=== PATIENT | female | born 1990 | race Caucasian/White ===

== ENCOUNTER 2019-10-01 15:02 | Emergency (ER) | payer OTHER ==
[~2019-10-01] VITALS: Ht 167.6 cm; Wt 86.2 kg
[2019-10-01 15:24] VITALS: BP 126/79
--- NOTE | 2019-10-01 15:38 | NUR ---
PT AMBULATED TO BED 08, RN EVALUATING AT BEDSIDE.
--- NOTE | 2019-10-01 15:42 | NUR ---
29 Y/O F C/C CHEST PAIN/SOB X 30 MIN AGO. PER PT TIGHTNESS ON STERNUM AREA NOT RADIATING; PAIN 9/10; CHEST PAIN IS INTERMITTENT. LUNG SOUNDS CLEAR; 98% RA. PER PT HAS HAD SIMILAR EPISODES. PT NKA. HX DM. NO RX. NO N/V/D. SIDE RAIL X1. FAMILY AT BEDSIDE.
--- NOTE | 2019-10-01 15:44 | NUR ---
RT AT BEDSIDE
--- NOTE | 2019-10-01 15:44 | NUR ---
EMT AT BEDSIDE; EKG
--- NOTE | 2019-10-01 16:00 | NUR ---
LAB AT BEDSIDE
--- NOTE | 2019-10-01 16:04 | NUR ---
ERMD AT BEDSIDE
--- NOTE | 2019-10-01 16:05 | NUR ---
XRAY AT BEDSIDE
[2019-10-01 16:15] LABS: BASOPHILS # (AUTO) 0.1 K/uL (0.00-0.22); BASOPHILS % (AUTO) 0.7 % (0.0-2.0); EOSINOPHILS # (AUTO) 0.2 K/uL (0-0.4); EOSINOPHILS % (AUTO) 1.9 % (0.0-4.0); HEMATOCRIT 41.2 % (36-48); HEMOGLOBIN 13.9 g/dL (12.0-16.0); LYMPHOCYTES # (AUTO) 2.2 K/uL (2.5-16.5); LYMPHOCYTES % (AUTO) 27.3 % (20.5-51.1); MEAN CORPUSCULAR HEMOGLOBIN 31 pg (27-31); MEAN CORPUSCULAR HGB CONC 34 g/dL (33-37); MEAN CORPUSCULAR VOLUME 92.3 fL (80-94); MONOCYTES # (AUTO) 0.6 K/uL (0.8-1.0); MONOCYTES % (AUTO) 6.7 % (1.7-9.3); NEUTROPHILS # (AUTO) 5.2 K/uL (1.8-7.7); NEUTROPHILS % (AUTO) 63.4 % (42.2-75.2); PLATELET COUNT (AUTO) 236 K/uL (140-450); RED BLOOD CELL COUNT(AUTO) 4.46 MIL/uL (4.20-5.40); RED CELL DISTRIBUTION WIDTH 12.7 % (11.6-13.7); WHITE BLOOD COUNT (AUTO) 8.2 K/uL (4.8-10.8)
[2019-10-01 16:28] LABS: PROTHROMBIN TIME 9.8 secs (10.8-13.4)
[2019-10-01 16:37] LABS: APPEARANCE,URINE CLEAR (CLEAR); BILIRUBIN,URINE NEGATIVE (NEGATIVE); BLOOD, URINE NEGATIVE (NEGATIVE); COLOR,URINE YELLOW (YELLOW); LEUKOCYTE ESTERASE ,URINE NEGATIVE (NEGATIVE); NITRITE, URINE NEGATIVE (NEGATIVE); UGLUCOSE NEGATIVE (NEGATIVE)
[2019-10-01 16:42] LABS: BARBITURATE, URINE NEG. ng/ml (NEG <=200); BENZODIAZEPINE, URINE NEG. ng/mL (NEG <=200); CANNABINOID, URINE NEG. ng/mL (NEG <=50); COCAINE, URINE NEG. ng/mL (NEG <=300); OPIATE, URINE NEG. ng/mL (NEG <=2000); PHENCYCLIDINE SCREEN,URINE NEG. ng/mL (NEG <=25)
[2019-10-01 16:47] LABS: ANION GAP 16.6 (8-16); CARBON DIOXIDE 23.2 mmol/L (21-32); CREATININE 0.6 mg/dL (0.6-1.3); POTASSIUM 3.8 mmol/L (3.5-5.1)
[2019-10-01 16:51] LABS: D-DIMER < 100 ng/ml (0-400)
[2019-10-01 16:55] LABS: ALBUMIN 3.9 g/dL (3.4-5.0); TOTAL BILIRUBIN 0.6 mg/dL (0.0-1.0)
--- NOTE | 2019-10-01 17:24 | NUR ---
PT RESTING IN BED, SIDE RAIL X1, FAMILY AT BEDSIDE
[2019-10-01 20:06] VITALS: BP 120/74
--- NOTE | 2019-10-01 20:06 | NUR ---
Patient discharged with v/s stable. Written and verbal after care instructions given and explained. Patient alert, oriented and verbalized understanding of instructions. Ambulatory with steady gait. All questions addressed prior to discharge. ID band removed. Patient advised to follow up with PMD. Rx of ANAPROX given. Patient educated on indication of medication including possible reaction and side effects. Opportunity to ask questions provided and answered.
== END 2019-10-01 20:06 | disposition home or self-care (01) ==
LOC: MED 15:02
DX: R00.2 Palpitations (principal); F41.0 Panic disorder [episodic paroxysmal anxiety]; E11.9 Type 2 diabetes mellitus without complications; E66.9 Obesity, unspecified; Z68.30 Body mass index [BMI] 30.0-30.9, adult
CPT/HCPCS: 36415; 36600; 71045; 80053; 80305; 81003; 81025; 82803; 83735; 83880; 84484; 85025; 85379; 85610; 85730; 93005; 99284; Q0092